=== PATIENT | female | born 1995 | race Caucasian/White ===

== ENCOUNTER 2018-11-21 00:42 | Emergency (ER) | payer OTHER ==
[~2018-11-21] VITALS: Ht 157.5 cm; Wt 85.3 kg
[2018-11-21 02:43] VITALS: BP 120/85
== END 2018-11-21 02:49 | disposition home or self-care (01) ==
LOC: ED 00:42
DX: K52.9 Noninfective gastroenteritis and colitis, unspecified (principal)
CPT/HCPCS: Q0162